=== PATIENT | male | born 1970 | race Caucasian/White ===

== ENCOUNTER 2016-12-24 07:37 | Emergency (ER) | payer OTHER ==
[~2016-12-24] VITALS: Ht 177.8 cm; Wt 104.0 kg
[~2016-12-24 07:37] MED LIST: CEPH500C PO; OXYC1TAB3 PO
[2016-12-24 07:41] VITALS: TEMP 36.6; Ht 177.8 cm; Wt 104.0 kg
[2016-12-24] MEDS ORDERED: ACETAMINOPHEN 500 MG TAB PO STA (08:01)
[2016-12-24] MEDS ORDERED: MELA1TAB5 PO (08:11)
[2016-12-24] MEDS ORDERED: PROPARACAINE HCL 0.5% OP SOLN 15 ML BTL ONE (08:26)
--- NOTE | 2016-12-24 08:54 | EMERGENCY ROOM VISIT NOTE ---
ED Visit Note First contact with patient: 07:52 CHIEF COMPLAINT: Something in right eye HISTORY OF PRESENT ILLNESS: This 46-year-old male presents the ER with chief complaint of feeling like there is something in his right eye. The patient denies knowing getting something in his eye. He started feeling it last night and today when he woke up it felt worse. He states he now has a headache due to the eye pain. The patient denies any visual changes. He denies any dizziness. The patient does not work contacts or glasses. REVIEW OF SYSTEMS:6 system review was performed and was negative unless stated otherwise in history of present illness. PMH: The patient is healthy; there is no significant medical or surgical history. SOCIAL HISTORY: Patient lives with his . The patient admits to tobacco use but denies any alcohol use. At home. PHYSICAL EXAM: Vital Signs: Were reviewed Reviewed Nurse's notes. GENERAL: 46- year-old white male appears in no acute distress. EYES: A small yenifer noted under the upper eyelid. The pupils are round, equal, and react to light. EOMs are full. There is discharge of clear tears from the right eye which is not injected. There is a small black yenifer noted on the underside of the upper eyelid on the lateral aspect. This was removed using a cotton swab. Slit lamp exam revealed No foreign body was seen embedded in the cornea. The cornea was clear and no hyphema was seen. Fluorescein uptake was observed with ultraviolet light at the 8 o'clock position at the edge of the iris. EMERGENCY DEPARTMENT COURSE: The fluorescein was irrigated away and Ciloxan eyedrops were placed into the right eye. The patient was given Tylenol 1 g by mouth for pain. The patient was given the remainder of the Ciloxan eyedrops to take with him to use as directed. DIAGNOSIS: Foreign body right eye Corneal abrasion right eye DISCHARGE INSTRUCTIONS AND TREATMENT: Tylenol or ibuprofen as needed for pain. Ciloxan eyedrops 2 drops into the right eye every 2 hours while awake for 2 days then 2 drops into the right eye every 4 hours for an additional 3 days. URI should recover in 24-48 hours. If you are having worsening of symptoms, return to ER or follow-up with ware finisher. Current/Historical Medications Scheduled Melatonin (Kp Melatonin), 1 TAB PO HS Allergies Coded Allergies: No Known Allergies (Unverified , 12/24/16) Vital Signs Date Time Temp Pulse Resp B/P Pulse Ox O2 Delivery O2 Flow Rate FiO2 12/24/16 07:41 36.6 72 16 145/96 95 Room Air Medications Administered Medications (Trade) Dose Ordered Sig/Sj Route Start Time Stop Time Status Last Admin Dose Admin Acetaminophen (Tylenol Tab) 1,000 mg NOW STAT PO 12/24/16 08:01 12/24/16 08:02 DC 12/24/16 08:40 1,000 MG Proparacaine HCl (Alcaine 0.5% Oph Soln) 225 drops STK-MED ONCE .ROUTE 12/24/16 08:26 12/24/16 08:29 DC 12/24/16 08:39 225 DROPS Departure Information Referrals Misael Hanna M.D.([facility]) (PCP) Patient Instructions My [facility]
[2016-12-24] MEDS ORDERED: CIPROFLOXACIN HCL 0.3% OP SOLN 2.5 ML BTL OPR ONE (09:00)
[2016-12-24 09:04] VITALS: BP 138/88; PULSE 68; O2SAT 97
== END 2016-12-24 09:06 | disposition home or self-care (01) ==
LOC: C.EDB 07:40
DX: S00.251A Superficial foreign body of right eyelid and periocular area, initial encounter (principal); S05.01XA Injury of conjunctiva and corneal abrasion without foreign body, right eye, initial encounter; X58.XXXA Exposure to other specified factors, initial encounter; F17.200 Nicotine dependence, unspecified, uncomplicated

== ENCOUNTER 2017-09-30 05:08 | Day surgery (SDC) | payer OTHER ==
[2017-09-23 11:25] VITALS: BMI 34.0
[~2017-09-30] VITALS: Ht 172.7 cm; Wt 102.0 kg
[~2017-09-30 05:08] MED LIST changes: -CEPH500C PO; +CYCL10TA6 PO; -OXYC1TAB3 PO
[2017-09-30 05:35] VITALS: BP 120/79; PULSE 68; TEMP 36.5; O2SAT 94; Ht 172.7 cm; Wt 102.0 kg
[2017-09-30] MEDS ORDERED: IBUP-1450 PO (05:46)
[2017-09-30] MEDS ORDERED: LACTATED RINGER'S 1000ML 1,000 ML IV SCH ×2 (06:00)
[2017-09-30] MEDS ORDERED: ONDANSETRON INJ 2 MG/ML 2 ML VIAL ONE (06:38)
[2017-09-30] MEDS ORDERED: DEXAMETHASONE SOD INJ 4 MG/ML VIAL ONE (06:38)
[2017-09-30] MEDS ORDERED: MIDAZOLAM HCL 1 MG/ML 2ML VIAL ONE (06:38)
[2017-09-30] MEDS ORDERED: FENTANYL CITRATE INJ 50 MCG/1 ML 2 ML VIAL ONE ×3 (06:38→08:24)
[2017-09-30] MEDS ORDERED: PROPOFOL IV EMULSION 10 MG/ML 20 ML VIAL IV ONE (06:38)
[2017-09-30] MEDS ORDERED: LIDOCAINE HCL 2% 2 ML VIAL (20MG/ML) ONE (06:38)
[2017-09-30] MEDS ORDERED: ACETAMINOPHEN 1000 MG/100 ML IV IV ONE (06:49)
[2017-09-30] MEDS ORDERED: BUPIVACAINE/EPINEPHRINE 0.5% MPF 1:200,000 30 ML VIAL ONE (06:54)
--- NOTE | 2017-09-30 06:59 | History & Physical Bridge Note ---
H&P Re-Evaluation Bridge Note: I have examined the patient, reviewed the History & Physical and in the interval since the performance of the History & Physical I have noted the following changes of clinical significance: No changes noted
[2017-09-30] MEDS: CEFAZOLIN 2000MG IV PUSH 10 ML IV SCH (07:00)
[2017-09-30] MEDS ORDERED: SUCCINYLCHOLINE 100MG/5ML SYR IV ONE (07:23)
[2017-09-30] MEDS ORDERED: PHENYLEPHRINE 100MCG/ML 5ML SYR ONE (07:30)
[2017-09-30] MEDS ORDERED: EpHEDrine SULFATE 50MG/5ML SYR ONE (07:34)
[2017-09-30] MEDS ORDERED: NEOSTIGMINE METHYLSULFATE 5 MG/5 ML SYR ONE (07:52)
[2017-09-30] MEDS ORDERED: GLYCOPYRROLATE INJ 0.2 MG/ML VIAL ONE (07:52)
[2017-09-30] MEDS ORDERED: HYDR-5688 PO (08:14)
[2017-09-30] MEDS ORDERED: ONDANSETRON INJ 2 MG/ML 2 ML VIAL IV PRN ×2 (08:15→08:30)
[2017-09-30] MEDS ORDERED: EpHEDrine SULFATE INJ 50 MG/ML AMP IV PRN (08:15)
[2017-09-30] MEDS ORDERED: FENTANYL CITRATE INJ 50 MCG/1 ML 2 ML VIAL IV PRN (08:15)
[2017-09-30] MEDS ORDERED: ATROPINE SULFATE 0.1 MG/ML 5ML SYR IV PRN (08:15)
[2017-09-30] MEDS ORDERED: SODIUM CHLORIDE 0.9% 1000ML 1,000 ML IV SCH (08:18)
--- NOTE | 2017-09-30 08:18 | Discharge Instructions ---
Discharge Instructions Date of Service Sep 30, 2017. Visit Reason for Visit: Symptomatic Gallstones Discharge Discharge Diagnosis / Problem: Symptomatic Gallstones Discharge Goals Goal(s): Decrease discomfort, Improve function Activity Recommendations Activity Limitations: as noted below Lifting Limitations: no more than 10 pounds, until after follow-up appointment Exercise/Sports Limitations: until after follow-up appointment Shower/Bathe: tomorrow Driving or Machine Use: resume 3 days after discharge (Do not drive while using narcotic pain medication.) Anesthesia . Post Anesthesia Instructions: If you have had General Anesthesia or IV Sedation: * Do not drive today. * Resume driving when surgeon permits. * Do not make important decisions or sign legal documents today. * Call surgeon for: 1. Temperature elevations greater than 101 degrees F. 2. Uncontrollable pain. 3. Excessive bleeding. 4. Persistent nausea and vomiting. 5. Medication intolerance (nausea, vomiting or rash). * For nausea and vomiting use only clear liquids such as: tea, soda, bouillon until nausea subsides, then gradually increase diet as tolerated. * If you have any concerns or questions, call your surgeon's office. If physician is unavailable and it is an emergency, call 911 or go to the nearest emergency room. . Instructions / Follow-Up Instructions / Follow-Up You have surgical glue covering your incisions. Please allow this to fall off on its own. You have been prescribed Chandler to use as needed for pain relief. You may alternate this with your Ibuprofen for better pain relief as well. Please follow-up with Dr. Bradley in 2 weeks. Please contact our office at to schedule an appointment if you have not done so already. Please contact our office with any further questions or concerns. [facility]. [address] [place] [address]. Diet Recommendations Recommended Home Diet: no limitations, resume previous diet Procedures Procedures Performed: Laparoscopic Cholecystectomy Pending Studies Studies pending at discharge: yes List of pending studies: Pathology Medical Emergencies . Who to Call and When: Medical Emergencies: If at any time you feel your situation is an emergency, please call 911 immediately. . Non-Emergent Contact Non-Emergency issues call your: Primary Care Provider, Surgeon Call Non-Emergent contact if: you have a fever, temperature is above 101.5, your pain is not controlled, your pain is worsening, wound has increased drainage, wound has increased redness, you have any medication questions . . "Provider Documentation" section prepared by Desmond So. . [place] Drug Monitoring Program Search Results: patient reviewed within database, no issues identified
[2017-09-30] MEDS ORDERED: HYDROCODONE/ACETAMOPHEN 5/325MG TAB PO PRN ×2 (08:30)
--- NOTE | 2017-09-30 08:59 | Anesthesiology Progress Note ---
Anesthesia Post Op Note Date & Time Sep 30, 2017 at 08:58 Vital Signs Pain Intensity: 4 Vital Signs Past 12 Hours Date Time Temp Pulse Resp B/P (MAP) Pulse Ox O2 Delivery O2 Flow Rate FiO2 09/30/17 08:50 37.2 66 17 109/75 92 Room Air 09/30/17 08:40 71 26 123/67 92 Room Air 09/30/17 08:30 64 23 114/71 96 Oxymask 09/30/17 08:20 75 20 131/80 92 Oxymask 10 09/30/17 08:14 36.9 81 18 152/92 94 Oxymask 09/30/17 05:35 36.5 68 20 120/79 (93) 94 Room Air Notes Mental Status: alert / awake / arousable, participated in evaluation Pt Amnestic to Procedure: Yes Nausea / Vomiting: adequately controlled Pain: adequately controlled Airway Patency, RR, SpO2: stable & adequate BP & HR: stable & adequate Hydration State: stable & adequate Anesthetic Complications: no major complications apparent
[2017-09-30 09:04] VITALS: BP 136/64; PULSE 66; TEMP 36.3; O2SAT 93
[2017-09-30] MEDS ORDERED: KETOROLAC TROMETHAMINE 30 MG/ML VIAL ONE (09:33)
[2017-09-30 09:40] VITALS: BP 112/57; PULSE 67; TEMP 36.5; O2SAT 93
[2017-09-30 10:20] VITALS: BP 133/62; PULSE 66; TEMP 36.4; O2SAT 94
[2017-09-30] MEDS ORDERED: ROCURONIUM BROMIDE 10 MG/ML 5 ML VIAL IV ONE (10:24)
--- NOTE | 2017-09-30 11:55 | [facility] Operative Report ---
Operative Report Operative Date Sep 30, 2017. Pre-Operative Diagnosis Symptomatic Gallstones Post-Operative Diagnosis Same as preoperative Procedure(s) Performed Laparoscopic Cholecystectomy Surgeon Dr. Peng Bradley Apple Picker Surgeon(s) Desmond So PA-C Estimated Blood Loss 20ML Findings gallstones Specimens A.) Gallbladder and contents Anesthesia get Complication(s) None Disposition Recovery Room / PACU Description of Procedure After informed consent was obtained the patient was taken the operating room placed in supine position. After successful intubation the abdomen was shaved and sterilely prepped and draped in usual fashion. A supraumbilical incision was made with an 11 blade scalpel and carried down through the soft tissue using electrocautery. The anterior rectus fascia was opened using electrocautery and 2 #0 Vicryl stay sutures were placed. Peritoneum was entered using blunt figure penetration and a finger sweep was performed. A 12 mm Lau trocar was placed and the abdomen was insufflated 18 mmHg. Laparoscope was inserted and the abdomen examined 360. A subxiphoid 5 mm port and 2 right upper quadrant 5 mm ports were placed under direct vision. The patient was placed in reverse Trendelenburg position slightly airplaned to the left. The gallbladder appeared slightly thickened with some mobile stones within it. We're able to grab it and elevated superiorly and laterally. A small hole was made and it by the grasper but we were able to close it with the grasper prevent further spillage. I Immediately suctioned up the bile. I was able to take down adhesions around the neck of the gallbladder with a [place] dissector. I was able to readily identify the cystic duct and skeletonized it. It was clipped twice proximally and once distally and transected. In similar fashion the cystic artery was identified skeletonized clipped and divided. There was also a small posterior branch that I clipped and cut as well. I used electrocautery to remove the gallbladder from the gallbladder fossa and placed it into an Endo Catch bag. Any small bleeding points on the fossa were controlled using electrocautery. Thorough irrigation was performed. At the end of the procedure there was adequate hemostasis and no evidence of a bile leak. I did lift up the left lobe of liver. Stomach looked normal there was no diaphragmatic hernia , spleen, small bowel all appeared normal as well. No other gross abnormalities identified. The trochars were all removed as well as the gallbladder. The fascia of the camera port was closed using 0 Vicryl figure -of-eight fashion. All the wounds were irrigated and closed using 4-0 Monocryl. Marcaine was injected around him for postoperative analgesia and skin glue used as a dressing. The patient was awaken extubated and transferred recovery in stable condition I attest to the content of the Intraoperative Record and any orders documented therein. Any exceptions are noted below.
== END 2017-09-30 10:20 | disposition home or self-care (01) ==
LOC: C.ACU 05:08
PROVIDERS: ATTEND Surgery
DX: K80.10 Calculus of gallbladder with chronic cholecystitis without obstruction (principal); F17.200 Nicotine dependence, unspecified, uncomplicated; Z82.49 Family history of ischemic heart disease and other diseases of the circulatory system